=== PATIENT | male | born 1955 | race Caucasian/White ===

== ENCOUNTER → 2018-02-11 | Outpatient (CLI) | payer MEDICARE ==
[~2018-02-11] MED LIST: ASPIR 8181 MG PO; B-121000 MCG PO; CEFDINIR300 MG PO; CYCLOBENZAPRINE5 MG PO; FENOFIBRATE160 MG PO; METOPROLOL SUCC25 MG PO; NAPROSYN500 MG PO; NOVOLIN 70100 UNITS/ SQ; VITAMIN D-32000 UNIT PO
--- NOTE | 2018-02-11 13:24 | Diagnostic Imaging Report ---
Left Shoulder - Two Views HISTORY: Pain COMPARISON: None FINDINGS: No lateral radiograph was obtained. No evidence of fracture or malalignment in the left shoulder on internal and external rotation views. Mild degenerative changes at the left glenohumeral joint. There is a left sided partially seen pacemaker device. IMPRESSION: No acute radiographic abnormality. Signed by: Dr. Paul Dye MD on 02/11/2018 1:20 PM
== END ==
LOC: RAD 12:39
PROVIDERS: ATTEND Family Medicine
DX: M25.512 Pain in left shoulder (principal)

== ENCOUNTER → 2020-10-24 | Outpatient (RCR) | payer MEDICARE | LOC: WCC 10:54 | PROVIDERS: ATTEND Family Medicine | DX: E11.621 Type 2 diabetes mellitus with foot ulcer (principal); E11.628 Type 2 diabetes mellitus with other skin complications; L97.511 Non-pressure chronic ulcer of other part of right foot limited to breakdown of skin; L97.521 Non-pressure chronic ulcer of other part of left foot limited to breakdown of skin; I79.8 Other disorders of arteries, arterioles and capillaries in diseases classified elsewhere; I10 Essential (primary) hypertension; I48.91 Unspecified atrial fibrillation; G99.0 Autonomic neuropathy in diseases classified elsewhere | CPT/HCPCS: 36415; 82948; 87071; 87075; 87186; 87205 ==

== ENCOUNTER 2021-07-04 12:39 | Emergency (ER) | payer MEDICARE ==
[~2021-07-04] VITALS: Ht 170.2 cm; Wt 108.0 kg
[2021-07-04 13:36] LABS: BASOPHILS % 0.6 % (0.0-1.0); EOSINOPHILS # (AUTO) 0.2 (0.0-0.4); EOSINOPHILS % 4.6 % (0.0-6.0); HEMATOCRIT 31.3 % (38.2-49.6); HEMOGLOBIN 10.1 g/dL (14.0-18.0); LYMPHOCYTES # (AUTO) 1.7 (1.0-3.2); LYMPHOCYTES % 32.7 % (18.0-39.1); MEAN CORPUSCULAR HEMOGLOBIN 28.5 pg (28-32); MEAN CORPUSCULAR HGB CONC 32.3 g/dL (31-35); MEAN CORPUSCULAR VOLUME 88.4 fL (81-99); MONOCYTES # (AUTO) 0.2 (0.2-0.8); MONOCYTES % 4.3 % (4.4-11.3); NEUTROPHILS % 57.6 % (38.7-80.0); PLATELET COUNT 178 x10e3/uL (140-360); RED BLOOD COUNT 3.54 x10e6/uL (4.3-5.7); RED CELL DISTRIBUTION WIDTH 14.9 % (11.7-14.4)
[2021-07-04 13:39] LABS: CLARITY,URINE CLEAR (CLEAR); COLOR,URINE YELLOW (YELLOW); KETONES,URINE NEGATIVE (NEGATIVE); LEUKOCYTE ESTERASE ,URINE SMALL (NEGATIVE); NITRITE,URINE POSITIVE (NEGATIVE); PROTEIN,URINE DIPSTICK TRACE (NEGATIVE); URINE UROBILINOGEN 0.2 mg/dL (0.2 - 1)
[2021-07-04 13:52] LABS: ALBUMIN 3.4 g/dL (3.5-5.0); ALBUMIN/GLOBULIN RATIO 0.9 (0.8-2.0); ANION GAP 13.1 mmol/L (8-16); CALCIUM 9.1 mg/dL (8.4-10.2); CREATININE, SERUM 1.31 mg/dL (0.72-1.25); POTASSIUM 4.1 mmol/L (3.5-5.1)
[2021-07-04 13:53] LABS: WBC,URINE (MAN) 21-50 /HPF (0-5)
[2021-07-04 13:57] LABS: BACTERIA,URINE FEW /HPF
[2021-07-04 13:58] LABS: EPITHELIAL CELLS,URINE FEW /LPF
[2021-07-04] MEDS ORDERED: CEPHALEXIN500 MG PO (15:10)
== END 2021-07-04 17:10 | disposition home or self-care (01) ==
LOC: ER 12:40
DX: R41.82 Altered mental status, unspecified (principal); N39.0 Urinary tract infection, site not specified; F03.90 Unspecified dementia, unspecified severity, without behavioral disturbance, psychotic disturbance, mood disturbance, and anxiety; E78.00 Pure hypercholesterolemia, unspecified; M54.9 Dorsalgia, unspecified; G89.29 Other chronic pain
CPT/HCPCS: 36415; 70450; 80053; 81001; 84484; 85025; 99284